=== PATIENT | male | born 2005 | race Caucasian/White ===

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

== ENCOUNTER 2024-08-23 14:17 | Emergency (ER) | payer SELFPAY ==
[2024-08-23 14:21] VITALS: BP 139/86; PULSE 56; RESP 18; TEMP 36.3; O2SAT 99; BMI 21.6
[2024-08-23 16:01] VITALS: BP 155/80; PULSE 68; O2SAT 100
[2024-08-23 16:30] VITALS: BP 116/93; PULSE 68; O2SAT 93
[2024-08-23 16:44] LABS: Bilirubin Urine Negative (Negative); Blood Urine 3+ (Negative); Glucose Urine UA Negative (Normal); Ketones Urine 2+ (Negative); Leukocyte Esterase Urine Negative (Negative); Nitrate Urine Negative (Negative); Protein Urine Trace (Negative); Specific Gravity, Urine 1.017 (1.005-1.030); Urine Appearance Clear (CLEAR); Urine Color Yellow (Yellow); pH Urine 5.5 (5-7)
--- NOTE | 2024-08-23 16:48 | CTR_ITS ---
PROCEDURE INFORMATION: Exam: CT Abdomen And Pelvis Without Contrast Exam date and time: 08/23/2024 4:55 PM Age: 19 years old Clinical indication: Abdominal pain; Flank; Right; Additional info: RT flank pain, today, n/v, pain TECHNIQUE: Imaging protocol: Computed tomography of the abdomen and pelvis without contrast. Axial, coronal and sagittal reformatted images were created and reviewed. Radiation optimization: All CT scans at this facility use at least one of these dose optimization techniques: automated exposure control; mA and/or kV adjustment per patient size (includes targeted exams where dose is matched to clinical indication); or iterative reconstruction. COMPARISON: No relevant prior studies available. RADIATION DOSE METRICS: Total DLP (mGy-cm): 300.53 FINDINGS: Liver: Unremarkable. Gallbladder and biliary ducts: No radiodense gallstones. No biliary ductal dilatation. Pancreas: Unremarkable. Spleen: Unremarkable. Adrenal glands: Normal. No mass. Kidneys and ureters: Nonobstructing left renal calculus. No hydronephrosis. Stomach and bowel: No bowel wall thickening. No obstruction. No pneumatosis. Appendix: Normal. Intraperitoneal space: Trace nonspecific free pelvic fluid, likely physiologic. No organized fluid collection. No free air. Vasculature: Unremarkable. No aneurysm. Lymph nodes: Small mesenteric lymph nodes, nonspecific in appearance. No pathologically enlarged lymph nodes. Urinary bladder: Circumferential urinary bladder wall thickening. 3 mm calculus at the right UVJ or in the adjacent urinary bladder (axial image 116 and coronal image 47) Reproductive: Unremarkable. Bones/joints: No acute osseous abnormality. Soft tissues: Unremarkable. CT/CT kidney stone [id number] IMPRESSION: 1. 3 mm calculus at the right UVJ or in the adjacent urinary bladder. No hydronephrosis. 2. Circumferential urinary bladder wall thickening. Correlate with urinalysis to exclude cystitis. 3. Additional findings, as above.
[2024-08-23 16:49] LABS: Hyaline Casts Urine 17.77 /lpf; RBC Urine 51-100 /hpf (0-2); Squamous Epithelial Cell Urine 0-5 /hpf (0-5)
[2024-08-23 17:00] VITALS: BP 125/73; PULSE 63; O2SAT 100
[2024-08-23 17:00] LABS: Add Urine Microscopic? YES; UA Slide Review UA Slide Review Perf
[2024-08-23 17:01] LABS: Add Urine Culture? Yes; Bacteria Urine 1+ /hpf; Mucus Urine 3+ /hpf
[2024-08-23] MEDS: sodium chloride 0.9% 1,000 ML 999 ML IV (17:10)
[2024-08-23] MEDS: metoclopramide 5 mg/mL SDV 2 mL 10 MG IVP (17:12)
[2024-08-23] MEDS: ketorolac 30 mg/mL INJ IVP (17:13)
[2024-08-23 17:24] LABS: Basophils % 0.3 %; Eosinophils % 0.2 %; Hematocrit 43.1 % (37-53); Lymphocytes # 1.1 10^3/uL (1.5-6.5); Lymphocytes % 8.5 %; Mean Corpuscular HGB Conc 33.9 g/dL (30-55); Mean Corpuscular Hemoglobin 29.9 pg (27-33); Mean Corpuscular Volume 88.1 fl (82-101); Monocytes # 0.7 10^3/uL (0.2-0.9); Monocytes % 5.8 %; Neutrophils # 10.41 10^3/uL (1.8-8.0); Neutrophils % 84.8 %; Nucleated Red Blood Cells % 0 %; Platelet Count 192 10^3/cmm (157-399); Red Blood Count 4.89 10^6/uL (3.85-5.65); Red Cell Distribution Width 11.6 % (12.1-15.1); White Blood Count 12.29 10^3/uL (4.5-13.0)
[2024-08-23 17:30] VITALS: PULSE 64; O2SAT 98
--- NOTE | 2024-08-23 17:32 | ED_ITS ---
HPI - Abdominal Pain 2 General: Chief Complaint: Abdominal Pain Stated Complaint: Right side body hurts Time Seen by Provider: 08/23/24 14:27 Source: patient Mode of arrival: ambulatory Limitations: no limitations History of Present Illness: Patient presents emergency department today for evaluation and treatment of right flank pain which started earlier this morning. He states originally he had some achiness in his right testicle which has fully resolved at this time. He did not notice any color change to his urine including any signs of blood. He did have some nausea and had an episode of vomiting earlier today where he felt sweaty and chilled but, has not had any recorded fevers. He has still been able to tolerate oral intake. Has not been having any diarrhea. No previous history of kidney stones though he does have a family history. Related Data Previous Rx's Medication Instructions Recorded ketorolac 10 mg tablet 10 mg PO Q8H PRN pain 3 days #9 08/23/24 tabs ondansetron 4 mg disintegrating 4 mg PO Q8H 5 days #15 tabs 08/23/24 tablet tamsulosin 0.4 mg capsule (Flomax) 0.4 mg PO DAILY #7 caps 08/23/24 Allergies Allergy/AdvReac Type Severity Reaction Status Date / Time No Known Allergies Allergy Verified 08/23/24 14:25 Review of Systems 2 General: Reports: 10 or more systems reviewed and unremarkable except in HPI and below Physical Exam 2 Const: COMMON NORMALS: no acute distress, patient oriented x3 and alert HENMT: COMMON NORMALS: normocephalic, atraumatic, hearing grossly normal bilaterally and moist oral mucous membranes HEAD & SCALP: normocephalic and atraumatic Eye: COMMON NORMALS: Equal, round and reactive pupils present, EOMs intact bilaterally and conjunctivae normal CONJUNCTIVA: Yes conjunctivae normal P UPIL: Yes Equal, round and reactive pupils present Neck/C-Spine: COMMON NORMALS: full ROM and no JVD Lymph: LYMPHATIC: no lymphadenopathy noted Resp: COMMON NORMALS: normal respiratory effort, No retractions, No use of accessory muscles and clear to auscultation bilaterally AUSCULTATION: clear to auscultation bilaterally Cardio: COMMON NORMALS: no JVD, regular rate and regular rhythm RATE: r egular rate RHYTHM: regular rhythm GI: OTHER: Abdomen soft, nonreproducible tenderness on palpation to the right mid, lateral abdomen. No right CVA tenderness. Back/Pelvis: COMMON NORMALS: no thoracic nor lumbar tenderness and thoraco- lumbar ROM normal Extremity: COMMON NORMALS: normal to inspection, full ROM and capillary refill normal Neuro: COMMON NORMALS: patient oriented x3 SENSORIUM/ORIENTATION: Yes alert Psych: COMMON NORMALS: mental status grossly normal, Normal thought process present, cooperative, normal affect and activity/motor behavior normal T HOUGHT PROCESS: Normal thought process present Skin: COMMON NORMALS: no rashes or lesions noted and no wounds GENERAL SKIN EXAM: no rashes or lesions noted Course 2 Vital Signs: Vital signs: Vital Signs Temperature 97.4 F L 08/23/24 14:21 Pulse Rate 64 08/23/24 17:30 Respiratory Rate 18 08/23/24 14:21 Blood Pressure 125/73 08/23/24 17:00 Pulse Oximetry 98 08/23/24 17:30 Oxygen Delivery Me thod Room Air 08/23/24 17:30 MDM - Abdominal Pain Medical Decision Making Patient presented to the emergency department today with acute right flank pain. Patient has no signs of an acute abdomen on his examination and has no other upper respiratory symptoms. He is not having any stooling changes. No significant urinary symptoms. Urinalysis today does show blood without concerns for an active infection. Labs are stable. CT examination does confirm a 3 mm stone at the right UVJ without concerning for hydronephrosis or hydroureter. Discussed this finding with the patient. He has been comfortable here in the emergency department with nonnarcotic pain medication. He was given fluids and antinausea medicine. Will provide him a dose of Flomax prior to discharge with prescription for 3 days of ketorolac, more antinausea medication, and Flomax sent to his pharmacy to be picked up and continued in the morning. We discussed the importance of him staying well-hydrated during this time. He was also given a urine strainer and will request a follow-up appointment through case management to get in and follow-up with urology. Strict return precautions given for any change or worsening in his condition concerning for obstructive stone and developing hydroureter/pyelonephritis. He verbalizes understanding and agreement to treatment plan. Differential Diagnosis Likely abdominal pain and calculus of kidney; Unlikely acute appendicitis, constipation, gastroenteritis or small bowel obstruction Lab Data 08/23/24 17:15 08/23/24 17:15 Labs/Radiology: Radiology Impressions Abdomen/Pelvis CT 08/23/24 16:48 IMPRESSION: 1. 3 mm calculus at the right UVJ or in the adjacent urinary bladder. No hydronephrosis. 2. Circumferential urinary bladder wall thickening. Correlate with urinalysis to exclude cystitis. 3. Additional findings, as above. Laboratory Results WBC 12.29 10^3/uL (4.5-13.0) 08/23/24 17:15 RBC 4.89 10^6/uL (3.85-5.65) 08/23/24 17:15 Hgb 14.60 g/dL (13.2-15.6) 08/23/24 17:15 Hct 43.1 % (37-53) 08/23/24 17:15 MCV 88.1 fl (82-101) 08/23/24 17:15 MCH 29.9 pg (27-33) 08/23/24 17:15 MCHC 33.9 g/dL (30-55) 08/23/24 17:15 RDW 11.6 % (12.1-15.1) L 08/23/24 17:15 Plt Count 192 10^3/cmm (157-399) 08/23/24 17:15 MPV 11.0 fL (7.4-10.4) H 08/23/24 17:15 Neut % (Auto) 84.8 % 08/23/24 17:15 Lymph % (Auto) 8.5 % 08/23/24 17:15 [place]well % (Auto) 5.8 % 08/23/24 17:15 Eos % (Auto) 0.2 % 08/23/24 17:15 Baso % (Auto) 0.3 % 08/23/24 17:15 Neut # (Auto) 10.41 10^3/uL (1.8-8.0) H 08/23/24 17:15 Lymph # (Auto) 1.1 10^3/uL (1.5-6.5) L 08/23/24 17:15 [place]well # (Auto) 0.7 10^3/uL (0.2-0.9) 08/23/24 17:15 Eos # (Auto) 0.0 10^3/uL (0.0-0.8) 08/23/24 17:15 Baso # (Auto) 0.0 10^3/uL (0.0-0.1) 08/23/24 17:15 Nucleated RBC % (auto) 0 % 08/23/24 17:15 Nucleated RBCs # 0.0 /100WBC 08/23/24 17:15 Sodium 141 mmol/L (136-145) 08/23/24 17:15 Potassium 4.3 mmol/L (3.5-5.1) 08/23/24 17:15 Chloride 102 mmol/L (98-107) 08/23/24 17:15 Carbon Dioxide 26 mmol/L (22-29) 08/23/24 17:15 Anion Gap 17.3 (5-19) 08/23/24 17:15 BUN 13 mg/dL (6-20) 08/23/24 17:15 Creatinine 0.9 mg/dL (0.7-1.2) 08/23/24 17:15 GFR Calculation 107.6 mL/min (90-130) 08/23/24 17:15 Glucose 88 mg/dL (65-115) 08/23/24 17:15 Calculated Osmolality 292 mOsm/kg (285-295) 08/23/24 17:15 Calcium 10.0 mg/dL (8.5-10.5) 08/23/24 17:15 Total Bilirubin 0.5 mg/dL (0.15-1.2) 08/23/24 17:15 AST 20 U/L (0-40) 08/23/24 17:15 ALT 13 U/L (0-41) 08/23/24 17:15 Alkaline Phosphatase 96 U/L (40-130) 08/23/24 17:15 Total Protein 7.9 g/dL (6.6-8.7) 08/23/24 17:15 Albumin 5.1 g/dL (3.5-5.2) 08/23/24 17:15 Globulin 2.8 g/dL (1.3-4.6) 08/23/24 17:15 Urine Color Yellow (Yellow) 08/23/24 16:27 Urine Appearance Clear (CLEAR) 08/23/24 16:27 Urine pH 5.5 (5-7) 08/23/24 16:27 Ur Specific Monument 1.017 (1.005-1.030) 08/23/24 16:27 Urine Protein Trace (Negative) A 08/23/24 16:27 Urine Glucose (UA) Negative (Normal) 08/23/24 16:27 Urine Ketones 2+ (Negative) H 08/23/24 16:27 Urine Blood 3+ (Negative) A 08/23/24 16:27 Urine Nitrate Negative (Negative) 08/23/24 16:27 Urine Bilirubin Negative (Negative) 08/23/24 16:27 Urine Urobilinogen 1.0 mg/dL (Negative) 08/23/24 16:27 Ur Leukocyte Esterase Negative (Negative) 08/23/24 16:27 Urine RBC 51-100 /hpf (0-2) H 08/23/24 16:27 Urine WBC 6-10 /hpf (0-5) 08/23/24 16:27 Ur Squamous Epith Cells 0-5 /hpf (0-5) 08/23/24 16:27 Amorphous Sediment Not Reportable 08/23/24 16:27 Urine Bacteria 1+ /hpf (NONE) H 08/23/24 16:27 Hyaline Casts 17.77 /lpf 08/23/24 16:27 Urine Mucus 3+ /hpf 08/23/24 16:27 All radiology interpretation(s) finalized by discharge Discharge Plan Discharge Patient Disposition: Home Clinical Impression: Calculus of kidney, Left ureteral stone Condition: Stable Prescriptions: New tamsulosin [Flomax] 0.4 mg capsule 0.4 mg PO DAILY Qty: 7 0RF ketorolac 10 mg tablet 10 mg PO Q8H PRN (Reason: pain) 3 Days Qty: 9 0RF ondansetron 4 mg tablet,disintegrating 4 mg PO Q8H 5 Days Qty: 15 0RF Discharge Orders: Discharge ED (Routine); Ordered 08/23/24 Ordered By: Lily Quintana Referrals: Zane Zelaya MD [Family Provider] - Nawaf Bocanegra MD [Primary Care Provider] - Discharge Diet: Usual diet Discharge Activity: Increase activity as tolerated Patient Instructions: Kidney Stones (ED) Activity Restrictions/Additional Instructions: Urinalysis today shows concerns for kidney stone as there is blood in your urine without findings of an infection. Lab work is stable. The CT examination did find a 3 mm stone right at the boundary of your right ureter where it attaches to the bladder at the UVJ. By size, this stone should be able to pass on its own with assistance with medication. I provided these prescriptions to be sent to the pharmacy to be picked up and continued in the morning as we have given you your first doses here through the emergency department tonight. Is extremely important that you increase your clear fluids during this time. We are also providing you a urine strainer to see if you would be able to catch and collect your kidney stone. As discussed, it does look like a small grain of sand. I have requested that you get a follow-up appoint with urology and they should be calling you to coordinate that follow-up. If you can take that stone with you to the urologist, they can run test on it to determine the type of stone you make which may be able to help prevent you from making more stones in the future. Unfortunately, your CT scan also shows that you have a stone in your left kidney at this time. While stones in the kidney do not cause any pain, if it does try to pass into the ureter or the urine tube, this can cause the type of pain you are experiencing today. Watch for any new onset fever, return or continue of vomiting, worsening pain-especially in your flank or in your mid back region. These could be signs that the stone has become obstructive and you are having complications which need to be seen and evaluated immediately. Coding Level of Care Code ED Rubber Vulcanizing Machine Operator for Alex Rivera
[2024-08-23 17:48] LABS: Alanine Aminotransferase 13 U/L (0-41); Albumin Level 5.1 g/dL (3.5-5.2); Alkaline Phosphatase 96 U/L (40-130); Anion Gap 17.3 (5-19); Aspartate Amino Transferase 20 U/L (0-40); Blood Urea Nitrogen 13 mg/dL (6-20); Carbon Dioxide 26 mmol/L (22-29); Chloride 102 mmol/L (98-107); Creatinine Clr Calc Pharmacy 112.0126; Globulin 2.8 g/dL (1.3-4.6); Glomerular Filtration Rate 107.6 mL/min (90-130); Glucose 88 mg/dL (65-115); Osmolality Calculated 292 mOsm/kg (285-295); Potassium 4.3 mmol/L (3.5-5.1); Sodium 141 mmol/L (136-145); Total Bilirubin 0.5 mg/dL (0.15-1.2); Total Protein 7.9 g/dL (6.6-8.7)
[2024-08-23] MEDS: tamsulosin 0.4 mg Capsule PO (18:50)
[2024-08-23 18:53] VITALS: BP 125/73; PULSE 85; O2SAT 98
--- NOTE | 2024-08-25 09:41 | DCPLANNER ---
Referral sent to [facility] urology
== END 2024-08-23 18:55 | disposition home or self-care (01) ==
PROVIDERS: Emergency Provider Physician Assistant; Family Provider Family Medicine; PCP Family Medicine
DX: N20.2 Calculus of kidney with calculus of ureter (principal)
CPT/HCPCS: 74176; 80053; 81001; 85025; 87086; 96361; 96374; 96375; 99285; J1885; J2765; J7030